=== PATIENT | male | born 1980 | race Caucasian/White ===

== ENCOUNTER 2016-07-21 13:15 | Emergency (ER) | payer OTHER ==
--- NOTE | 2016-07-21 13:24 | EDPHY ---
H & P Time Seen by Provider: 07/21/16 13:19 HPI/ROS: CHIEF COMPLAINT: Possible seizure HISTORY OF PRESENT ILLNESS: 35-year-old male arrives via ambulance after seizure-like activity. Per his friends were at lunch with him in note that approximately 5 minutes before his seizure-like activity started he started to experience aphasia, then started to experience seizure-like activity. No incontinence. No prior history of similar. He is amnestic to events. Did have a brief postictal period now resolved. No benzodiazepine by EMS EN route. He has no complaints of pain or discomfort at this time and no antecedent symptoms such as headache, nausea, vomiting, chest pain. Approximately 5-6 drinks of alcohol per week. Intermittent marijuana use. Denies other drug use. He denies: head injury, chest pain, palpitations. PRIMARY CARE PROVIDER: no PCP REVIEW OF SYSTEMS: A ten point review of systems was performed and is negative with the exception of the items mentioned in the HPI PAST MEDICAL & SURGICAL HISTORY: No Prior history of seizure disorder prior history of similar activity SOCIAL HISTORY: Denies alcohol use today PHYSICAL EXAM (Prior to examination, patient consented to physical exam, hands were washed and my usual and customary physical exam procedures followed) 1) GENERAL: Well-developed, well-nourished, alert and oriented. Appears to be in no acute distress. Answering questions appropriately 2) HEAD: Normocephalic, atraumatic 3) HEENT: Pupils equal, round, reactive to light bilaterally. Sclera anicteric. Nasopharynx, oropharynx, clear, no lesions. Anterior tip of the tongue has an abrasion. Ears bilaterally with normal tympanic membranes. 4) NECK: Full range of motion, no meningeal signs. 5) LUNGS: Clear auscultation bilaterally, no wheezes, no rhonchi, no retractions. 6) HEART: Regular rate and rhythm, no murmur, no heave, no gallop. 7) ABDOMEN: No guarding, no rebound, no focal tenderness, negative McBurney's, negative Porras's, negative Rovsing's, negative peritoneal sign, 8) MUSCULOSKELETAL: Moving all extremities, no focal areas of tenderness, no obvious trauma. No peripheral edema or discoloration. 9) BACK: No CVA tenderness, no midline vertebral tenderness, no fluctuance, no step-off, no obvious trauma, no visual or palpable abnormality. 10) SKIN: No rash, no petechiae. 11) Psychiatric: Patient is oriented X 3, there is no agitation. 12) NEURO: Awake, alert, and oriented to person, place and time. Answers questions appropriately. There were no obvious focal neurologic abnormalities. No cerebellar dysfunction. Cranial nerves 2 through to 12 intact. Normal steady gait. Upper and lower extremities bilaterally with strength 5 / 5, reflexes 2+. DIFFERENTIAL DIAGNOSIS: in no particular include but limited to CVA, new onset seizure, substance withdrawal (Batool Phipps) Constitutional: Initial Vital Signs Temperature (C) 36.8 C 07/21/16 15:09 Heart Rate 94 07/21/16 15:09 Respiratory Rate 16 07/21/16 15:09 Blood Pressure 133/82 H 07/21/16 15:09 O2 Sat (%) 96 07/21/16 15:09 O2 Delivery Mode Room Air Allergies/Adverse Reactions: Penicillins Allergy (Verified 07/21/16 15:08) Home Medications: Medication Instructions Recorded NK [No Known Home Meds] 07/21/16 Medical Decision Making - Diagnostics EKG Interpretation: EKG reviewed by me shows normal sinus rhythm with normal interval and axis. QRS is normal there is no significant ST elevation or depression. No arrhythmia. The rate is 91 (Pipo Decker) Imaging Results: Imaging Impressions Head CT 07/21/16 13:23 Impression: 1. Normal CT brain without contrast. 2. Consider MRI of the brain without and with contrast enhancement, if there is continued clinical concern. Findings and recommendations discussed with Emergency Department physician, Batool Phipps at 14:10 hour, 07/21/2016. Final report concurs with initial preliminary interpretation. Images reviewed by myself (Batool Phipps) ED Course/Re-evaluation: 1:25 p.m.: Seen on arrival by myself and Dr. Pipo Decker. 3:20 p.m.: Re-evaluation. He is comp, cooperative, answering questions appropriately, remains with a nonfocal exam. Had a lengthy discussion with him at this time and he notes no unusual stressors, no change in sleep hygiene, no history of benzodiazepine or alcohol abuse, no trauma. discussed his negative CT imaging. Specific etiology of his seizure-like activity is not completely clear at this time. Doubt CVA. whom discussed case Dr. Pipo Decker. We think the patient can be discharged with usual seizure precautions instructions including, but not limited to, climbing, driving, swimming. Stressed the importance of neurology follow-up and this establishing a primary care provider. (Batool Phipps) The patient was also seen by me on arrival by EMS. This was apparently his 1st seizure. Patient denies drug use withdrawal from alcohol symptoms. Exam shows stable vital signs. Exam is otherwise nonfocal. He did bite the tip of his tongue. Otherwise he is alert conversational and neurologically intact. Head CT is reviewed by me and is not acute (Pipo Decker) - Data Points Laboratory Results: Laboratory Results 07/21/16 14:30 07/21/16 14:30 07/21/16 07/21/16 14:30 14:30 WBC 11.36 10^3/uL H 10^3/uL (3.80-9.50) RBC 4.68 10^6/uL 10^6/uL (4.40-6.38) Hgb 14.2 g/dL g/dL (13.7-17.5) Hct 39.9 % L % (40.0-51.0) MCV 85.3 fL fL (81.5-99.8) MCH 30.3 pg pg (27.9-34.1) MCHC 35.6 g/dL g/dL (32.4-36.7) RDW 11.9 % % (11.5-15.2) Plt Count 184 10^3/uL 10^3/uL (150-400) MPV 11.5 fL fL (8.7-11.7) Neut % (Auto) 89.8 % H % (39.3-74.2) Lymph % (Auto) 4.8 % L % (15.0-45.0) [place] % (Auto) 4.7 % % (4.5-13.0) Eos % (Auto) 0.2 % L % (0.6-7.6) Baso % (Auto) 0.1 % L % (0.3-1.7) Nucleat RBC Rel Count 0.0 % % (0.0-0.2) Absolute Neuts (auto) 10.20 10^3/uL H 10^3/uL (1.70-6.50) Absolute Lymphs (auto) 0.55 10^3/uL L 10^3/uL (1.00-3.00) Absolute Monos (auto) 0.53 10^3/uL 10^3/uL (0.30-0.80) Absolute Eos (auto) 0.02 10^3/uL L 10^3/uL (0.03-0.40) Absolute Basos (auto) 0.01 10^3/uL L 10^3/uL (0.02-0.10) Absolute Nucleated RBC 0.00 10^3/uL 10^3/uL (0-0.01) Immature Gran % 0.4 % % (0.0-1.1) Immature Gran # 0.05 10^3/uL 10^3/uL (0.00-0.10) Sodium 138 mEq/L mEq/L (134-144) Potassium 4.4 mEq/L mEq/L (3.5-5.2) Chloride 104 mEq/L mEq/L (97-110) Carbon Dioxide 24 mEq/l mEq/l (22-31) Anion Gap 10 mEq/L mEq/L (8-16) BUN 20 mg/dL mg/dL (7-23) Creatinine 1.2 mg/dL mg/dL (0.7-1.3) Estimated GFR > 60 Glucose 104 mg/dL H mg/dL (70-100) Calcium 9.3 mg/dL mg/dL (8.5-10.4) Ethyl Alcohol < 10 mg/dL mg/dL (0-10) Departure - Departure Disposition: Home, Routine, Self-Care Clinical Impression: Seizure Condition: Good Instructions: New-Onset Seizure in Adults (ED) Additional Instructions: You may have had a seizure. Until your cleared by the your neurologist do not: Drive, swim alone, climb to heights, operate machinery. Call 911 if you develop seizure like activity or she develop headaches, nausea, vomiting, chest pain, difficulty walking, or any other symptoms that concern you. Referrals: Roscoe Butler DO [Medical Doctor] - 2-3 days, call for appt. (Dr. Roscoe Butler is a neurologist) AIDA UNGER [Medical Doctor] - 2-3 days, call for appt. (Recommend to establish care with a primary care provider, Dr. Aida Unger is a primary care provider)
[2016-07-21 14:43] LABS: % IMMATURE GRANULYOCYTES 0.4 % (0.0-1.1); ABSOLUTE IMMATURE GRANULOCYTES 0.05 10^3/uL (0.00-0.10); ADD DIFF? NO; ADD MORPH? NO; ADD SCAN? NO; ATYPICAL LYMPHOCYTE FLAG 0 (0-99); FRAGMENT RBC FLAG 0 (0-99); HEMATOCRIT 39.9 % (40.0-51.0); HEMOGLOBIN 14.2 g/dL (13.7-17.5); LEFT SHIFT FLG 0 (0-99); LIPEMIA HEMOLYSIS FLAG 90 (0-99); MEAN CELL HEMOGLOBIN 30.3 pg (27.9-34.1); MEAN CELL HEMOGLOBIN CONCENTR. 35.6 g/dL (32.4-36.7); MEAN CELL VOLUME 85.3 fL (81.5-99.8); MEAN PLATELET VOLUME 11.5 fL (8.7-11.7); PLATELET CLUMPS FLAG 10 (0-99); PLATELET COUNT 184 10^3/uL (150-400); RED BLOOD CELL COUNT 4.68 10^6/uL (4.40-6.38); RED CELL DISTRIBUTION WIDTH 11.9 % (11.5-15.2)
[2016-07-21 15:04] LABS: ANION GAP 10 mEq/L (8-16); CALCIUM 9.3 mg/dL (8.5-10.4); CARBON DIOXIDE 24 mEq/l (22-31); CHLORIDE 104 mEq/L (97-110); CREATININE 1.2 mg/dL (0.7-1.3); ETHANOL SERUM < 10 mg/dL (0-10); GLOMERULAR FILTRATION RATE > 60; GLUCOSE 104 mg/dL (70-100); POTASSIUM 4.4 mEq/L (3.5-5.2); SODIUM 138 mEq/L (134-144)
[2016-07-21 15:15] VITALS: RESP 16; TEMP 98.2
[2016-07-21 15:43] VITALS: BP 134/74; PULSE 82; O2SAT 94
== END 2016-07-21 15:45 | disposition home or self-care (01) ==
LOC: EDBD 13:15
DX: R56.9 Unspecified convulsions (principal)
CPT/HCPCS: G0480

== ENCOUNTER → 2016-08-06 | Outpatient (CLI) | payer OTHER ==
--- NOTE | 2016-08-06 16:57 | CPEEG ---
[f rep st] ELECTROENCEPHALOGRAM DATE OF STUDY: 08/06/2016 PROCEDURE: Four-hour video electroencephalogram. INTERPRETATION: This 4-hour video EEG recording is normal. There were no potentially epileptogenic abnormalities present in the awake or sleep recordings. During the EEG monitoring session, the pat ient did not have any clinical events. REPORT: This 4-hour video EEG contains 10 Hz alpha to the posterior head regions. There was no abn ormal activation at rest, during photic stimulation or hyperventilation. The patient became drowsy and fell into sustained sleep during the study. There was no abnormal activation during drowsiness, sleep, or during times of arousal. During the video EEG monitoring session, the patient did not connor ve any clinical events. /[id number]/MODL
== END ==
LOC: FCPNEURO 08:39
PROVIDERS: ATTEND Psychiatry & Neurology Neurology
DX: R56.9 Unspecified convulsions (principal)

== ENCOUNTER → 2016-08-09 | Outpatient (CLI) | payer OTHER ==
[~2016-08-09] MED LIST: GADOBUTROL 10 ML VIAL IVP ONE
== END ==
LOC: FIMAGING 12:01
PROVIDERS: ATTEND Psychiatry & Neurology Neurology
DX: R56.9 Unspecified convulsions (principal)
CPT/HCPCS: A9585